=== PATIENT | female | born 1985 | race American Indian/Alaskan Native ===

== ENCOUNTER 2017-03-17 15:45 | Emergency (ER) | payer SELFPAY ==
[2017-03-17 17:10] LABS: Basophils % (Auto) 0.6 % (0.0-1.8); Hematocrit 40.6 % (30.3-42.9); Hemoglobin 13.8 gm/dl (10.1-14.3); Mean Corpuscular HGB Conc 34 % (30-34); Mean Corpuscular Hemoglobin 31 pg (28-32); Mean Corpuscular Volume 90 fl (79-97); Platelet Count 334 K/mm3 (140-440); Red Blood Count 4.51 M/mm3 (3.65-5.03); Red Cell Distribution Width 13.6 % (13.2-15.2); White Blood Count 8.5 K/mm3 (4.5-11.0)
[2017-03-17 17:37] LABS: Alanine Aminotransferase 9 units/L (7-56); Albumin 4.5 g/dL (3.9-5); Albumin/Globulin Ratio 1.6 %; Alkaline Phosphatase 69 units/L (35-129); Anion Gap 18 mmol/L; Blood Urea Nitrogen 9 mg/dL (7-17); Calcium 9.5 mg/dL (8.4-10.2); Carbon Dioxide 23 mmol/L (22-30); Chloride 101.5 mmol/L (98-107); Glucose 88 mg/dL (65-100); Potassium 3.6 mmol/L (3.6-5.0); Sodium 139 mmol/L (137-145); Total Protein 7.4 g/dL (6.3-8.2)
[2017-03-17 17:55] LABS: Bacteria,Urine 1+ /HPF (Negative); Bilirubin,Urine NEG (Negative); Blood,Urine NEG (Negative); Ketones,Urine TR mg/dL (Negative); Leukocyte Esterase,Urine LG (Negative); Mucus,Urine 3+ /HPF; Nitrite,Urine NEG (Negative); Protein,Urine <15 mg/dL mg/dL (Negative)
--- NOTE | 2017-03-17 22:15 | Ultrasound Report ---
FINAL REPORT PROCEDURE: US OB \T\lt; = 14 WEEKS FETUS TECHNIQUE: Real-time transabdominal and transvaginal sonography of the uterus, placenta, amniotic fluid, adnexa, and fetus was performed with image documentation. Measurements were obtained to determine age/size. M-mode Doppler was used to document heartbeat. CPT 41178 and 11757 HISTORY: pain COMPARISON: No prior studies are available for comparison. FINDINGS: Uterus measures 9.6 cm in length. Endometrial thickness is 1.2 cm. No IUP is seen. Right ovary measures 3.0 x 2.8 x 2.6 cm. Left ovary measures 3.2 x 1.5 x 2.3 cm. A 2.1 cm cyst is seen in the right ovary. Moderate free fluid is seen in the pelvis. No ectopic is seen. IMPRESSION: No IUP or ectopic is seen. Findings could be due to missed and correlation with serial quantitative beta HCG levels is recommended. There is moderate free fluid in the pelvis and ultrasound followup may be useful if quantitative beta HCG levels continue to rise.
--- NOTE | 2017-03-17 22:16 | Ultrasound Report ---
FINAL REPORT PROCEDURE: US OB TRANSVAGINAL TECHNIQUE: Real-time transabdominal and transvaginal sonography of the uterus, placenta, amniotic fluid, adnexa, and fetus was performed with image documentation. Measurements were obtained to determine age/size. M-mode Doppler was used to document heartbeat. CPT 56460 and 11125 HISTORY: pain COMPARISON: No prior studies are available for comparison. FINDINGS: Uterus measures 9.6 cm in length. Endometrial thickness is 1.2 cm. No IUP is seen. Right ovary measures 3.0 x 2.8 x 2.6 cm. Left ovary measures 3.2 x 1.5 x 2.3 cm. A 2.1 cm cyst is seen in the right ovary. Moderate free fluid is seen in the pelvis. No ectopic is seen. IMPRESSION: No IUP or ectopic is seen. Findings could be due to missed and correlation with serial quantitative beta HCG levels is recommended. There is moderate free fluid in the pelvis and ultrasound followup may be useful if quantitative beta HCG levels continue to rise.
--- NOTE | 2017-03-17 23:20 | Emergency Department Report ---
ED Female HPI - General Chief complaint: Urogenital-Female Stated complaint: BURNING URINATION AND DISCHARGE Time Seen by Provider: 03/17/17 20:49 Source: patient Mode of arrival: Ambulatory Limitations: No Limitations - History of Present Illness Initial comments: Pt presents to ED with c/o heaviness in her vagina and suprapubic region when urinating x 3 days No fever, no N.V.D Complaint: dysuria, pelvic pain -: Gradual, days(s) (3) Location: suprapubic Radiation: non-radiating Severity: moderate Severity scale (0 -10): 6 Quality: dull, burning, aching Improves with: none Worsens with: urination Associated Symptoms: abdominal pain, dysuria. denies: vaginal discharge, vaginal bleeding, nausea/vomiting, fever/chills, shortness of breath, syncope, weakness, other - Related Data Sexually active: Yes : 5 Para: 2 A: 2 Previous Rx's Medication Instructions Recorded Last Taken Type HYDROcodone/ACETAMINOPHEN [[place] 1 each PO Q6HR #20 tablet 09/13/13 Unknown Rx 5/325 Tablet] Ibuprofen [Motrin] 600 mg PO Q8H PRN #60 tablet 09/13/13 Unknown Rx Neomy/Polymyx B/Hc (Otic) Soln 3 drops OT TID #1 bottle 09/13/13 Unknown Rx [Cortisporin (Otic) Soln] Azithromycin [Zithromax Z-SALLY] 250 mg PO DAILY #6 tablet 09/15/13 Unknown Rx Acetaminophen [Tylenol] 650 mg PO Q6HR PRN #30 tablet 03/17/17 Unknown Rx Clindamycin [Clindamycin CAP] 300 mg PO Q6H #28 capsule 03/17/17 Unknown Rx Allergies Allergy/AdvReac Type Severity Reaction Status Date / Time amoxicillin [Amoxicillin] Allergy Intermediate Vomiting Verified 03/17/17 16:37 latex Allergy Intermediate Swelling Verified 03/17/17 16:37 ED Review of Systems ROS: Stated complaint: BURNING URINATION AND DISCHARGE Other details as noted in HPI Comment: All other systems reviewed and negative Constitutional: denies: chills, diaphoresis, fever, malaise, weakness Eyes: denies: eye pain, eye discharge, vision change ENT: denies: ear pain, throat pain, dental pain, hearing loss Respiratory: denies: cough, shortness of breath, SOB with exertion Cardiovascular: denies: chest pain, palpitations, dyspnea on exertion, edema, syncope Endocrine: no symptoms reported. denies: excessive sweating, intolerance to cold, intolerance to heat, increased hunger Gastrointestinal: abdominal pain (suprapubic). denies: nausea, vomiting, diarrhea, constipation, hematemesis Genitourinary: urgency, dysuria, frequency. denies: hematuria, discharge, abnormal menses, dyspareunia Musculoskeletal: denies: back pain, joint swelling, arthralgia Skin: denies: rash, lesions, change in color, change in hair/nails Neurological: denies: weakness, numbness, paresthesias ED Past Medical Hx - Past Medical History Previous Medical History?: Yes Hx Asthma: Yes - Surgical History Past Surgical History?: Yes Additional Surgical History: x2 - Social History Smoking Status: Current Every Day Smoker Substance Use Type: Marijuana - Medications Home Medications: Home Medications Medication Instructions Recorded Confirmed Last Taken Type HYDROcodone/ACETAMINOPHEN [[place] 1 each PO Q6HR #20 tablet 09/13/13 Unknown Rx 5/325 Tablet] Ibuprofen [Motrin] 600 mg PO Q8H PRN #60 tablet 09/13/13 Unknown Rx Neomy/Polymyx B/Hc (Otic) Soln 3 drops OT TID #1 bottle 09/13/13 Unknown Rx [Cortisporin (Otic) Soln] Azithromycin [Zithromax Z-SALLY] 250 mg PO DAILY #6 tablet 09/15/13 Unknown Rx Acetaminophen [Tylenol] 650 mg PO Q6HR PRN #30 tablet 03/17/17 Unknown Rx Clindamycin [Clindamycin CAP] 300 mg PO Q6H #28 capsule 03/17/17 Unknown Rx ED Physical Exam - General Limitations: No Limitations General appearance: alert, in no apparent distress - Head Head exam: Present: atraumatic, normocephalic, normal inspection - Eye Eye exam: Present: normal appearance, PERRL. Absent: scleral icterus Pupils: Present: normal accommodation - ENT ENT exam: Present: normal exam, normal orophraynx, mucous membranes moist - Neck Neck exam: Present: normal inspection, full ROM. Absent: tenderness, lymphadenopathy, thyromegaly - Respiratory Respiratory exam: Present: normal lung sounds bilaterally. Absent: respiratory distress, wheezes, chest wall tenderness, accessory muscle use - Cardiovascular Cardiovascular Exam: Present: regular rate, normal rhythm, normal heart sounds. Absent: systolic murmur, diastolic murmur - GI/Abdominal GI/Abdominal exam: Present: soft, tenderness (mild, suprapubic region), normal bowel sounds. Absent: rebound, rigid, hyperactive bowel sounds, hypoactive bowel sounds - Rectal Rectal exam: Present: deferred - Extremities Exam Extremities exam: Present: normal inspection, full ROM, normal capillary refill - Back Exam Back exam: Present: normal inspection, full ROM, CVA tenderness (L) - Neurological Exam Neurological exam: Present: alert, oriented X3, CN II-XII intact, normal gait ED Course Vital Signs 03/17/17 03/17/17 03/17/17 16:38 20:00 20:45 Temperature 98.4 F Pulse Rate 77 67 Respiratory 18 16 16 Rate Blood Pressure 132/90 Blood Pressure 147/97 [Left] O2 Sat by Pulse 100 97 Oximetry 03/17/17 23:30 Temperature Pulse Rate 75 Respiratory 16 Rate Blood Pressure Blood Pressure 135/85 [Left] O2 Sat by Pulse 98 Oximetry ED Medical Decision Making - Lab Data Result diagrams: 03/17/17 16:55 03/17/17 16:55 Critical Care Time: No Critical care attestation.: If time is entered above; I have spent that time in minutes in the direct care of this critically ill patient, excluding procedure time. ED Disposition Clinical Impression: UTI (urinary tract infection), Disposition: DC- TO HOME OR SELFCARE Is pt being admited?: No Does the pt Need Aspirin: No Condition: Stable Instructions: (ED), Urinary Tract Infection in Women (ED) Additional Instructions: Follow up with your printed forms proofreader to monitor progression o fyour .If your problems get worse return back to ED or follow up with your System Technologist. Its too early in pregnacy to detect fetus in the uterus or if it is ectopic Prescriptions: Acetaminophen [Tylenol] 650 mg PO Q6HR PRN #30 tablet PRN Reason: Pain Clindamycin [Clindamycin CAP] 300 mg PO Q6H #28 capsule Referrals: PRIMARY CARE, [Primary Care Provider] - 3-5 Days Forms: Work/School Release Form(ED) Time of Disposition: 23:20
[2017-03-18] VITALS: BP 135/85
== END 2017-03-17 23:30 | disposition home or self-care (01) ==
LOC: ED 15:45
DX: O23.41 Unspecified infection of urinary tract in pregnancy, first trimester (principal); N39.0 Urinary tract infection, site not specified; J45.909 Unspecified asthma, uncomplicated; F12.10 Cannabis abuse, uncomplicated; F17.200 Nicotine dependence, unspecified, uncomplicated; Z98.890 Other specified postprocedural states; Z88.1 Allergy status to other antibiotic agents; Z91.040 Latex allergy status; Z3A.00 Weeks of gestation of pregnancy not specified
CPT/HCPCS: 36415; 76801; 76817; 80053; 81001; 81025; 84702; 85025

== ENCOUNTER 2017-03-24 11:54 | Emergency (ER) | payer SELFPAY ==
[2017-03-24 12:23] VITALS: BP 122/81
[2017-03-24 12:56] LABS: Basophils % (Auto) 0.5 % (0.0-1.8); Eosinophils % (Auto) 0.8 % (0.0-4.3); Hematocrit 43.3 % (30.3-42.9); Hemoglobin 14.7 gm/dl (10.1-14.3); Mean Corpuscular HGB Conc 34 % (30-34); Mean Corpuscular Hemoglobin 30 pg (28-32); Mean Corpuscular Volume 89 fl (79-97); Platelet Count 395 K/mm3 (140-440); Red Blood Count 4.89 M/mm3 (3.65-5.03); Red Cell Distribution Width 13.3 % (13.2-15.2); White Blood Count 13.5 K/mm3 (4.5-11.0)
[2017-03-24 14:10] LABS: Bilirubin,Urine NEG (Negative); Blood,Urine MOD (Negative); Ketones,Urine TR mg/dL (Negative); Leukocyte Esterase,Urine MOD (Negative); Mucus,Urine 3+ /HPF; Nitrite,Urine NEG (Negative)
== END 2017-03-24 16:11 | disposition left against medical advice (07) ==
LOC: ED 11:54
DX: R10.9 Unspecified abdominal pain (principal); Z53.21 Procedure and treatment not carried out due to patient leaving prior to being seen by health care provider
CPT/HCPCS: 36415; 81001; 84702; 85025; 86850; 86900; 86901